=== PATIENT | male | born 1965 | race African-American/Black ===

== ENCOUNTER 2019-04-06 07:56 | Emergency (ER) | payer SELFPAY ==
[~2019-04-06] VITALS: Ht 167.6 cm; Wt 75.0 kg
[2019-04-06 08:00] VITALS: BP 140/86
== END 2019-04-06 08:51 | disposition home or self-care (01) ==
LOC: ER 08:12
DX: J06.9 Acute upper respiratory infection, unspecified (principal); F12.10 Cannabis abuse, uncomplicated; F14.10 Cocaine abuse, uncomplicated; Z87.891 Personal history of nicotine dependence
CPT/HCPCS: 99283

== ENCOUNTER 2019-04-20 12:59 | Emergency (ER) | payer MEDICAID | END 2019-04-20 14:00 | disposition left against medical advice (07) | LOC: ER 12:59 | DX: Z53.21 Procedure and treatment not carried out due to patient leaving prior to being seen by health care provider (principal) ==

== ENCOUNTER 2019-06-06 20:38 | Emergency (ER) | payer MEDICAID ==
[~2019-06-06] VITALS: Ht 167.6 cm; Wt 75.0 kg
[2019-06-07] MEDS ORDERED: IBUPROFEN 600MG TABLET PO ONE (01:30)
[2019-06-07 06:45] VITALS: BP 122/71
== END 2019-06-07 06:46 | disposition home or self-care (01) ==
LOC: ER 20:38
DX: R51 Headache (principal); F14.10 Cocaine abuse, uncomplicated; F12.10 Cannabis abuse, uncomplicated
CPT/HCPCS: 99283